=== PATIENT | female | born 1990 | race American Indian/Alaskan Native ===

== ENCOUNTER 2022-03-05 12:37 | Emergency (ER) | payer SELFPAY ==
[2022-03-05 12:55] VITALS: BP 100/53
[2022-03-05 14:00] LABS: HCG Qualitative,Urine Positive (Negative)
[2022-03-05] MEDS ORDERED: ONDANSETRON 4 MG ODT TAB PO ONE ×2 (14:47→17:33)
[2022-03-05 16:23] LABS: Bilirubin,Urine NEG (Negative); Blood,Urine NEG (Negative); Color,Urine Amber (Yellow); Mucus,Urine 3+ /HPF; Urobilinogen,Urine < 2.0 mg/dL (<2.0)
--- NOTE | 2022-03-05 17:15 | Ultrasound Report ---
OB Ultrasound HISTORY: abdominal pain, preg. TECHNIQUE: Grayscale and color imaging performed. COMPARISON: None FINDINGS: Uterus measures 11 x 8.5 x 9 cm with an intrauterine gestation present. pole is 5.3 c m which corresponds with an EGA of 12 weeks 0 days. Estimated delivery date is 09/20/2022. The heart rate is 159 bpm. Both ovaries appear unremarkable. No significant pelvic free fluid. IMPRESSION: Single viable intrauterine gestation as above. Signer Name: Jeff Castañeda MD Signed: 03/05/2022 5:11 PM Workstation Name: [id number]
--- NOTE | 2022-03-05 17:24 | Emergency Department Report ---
ED HPI - General Chief complaint: Nausea/Vomiting/Diarrhea Stated complaint: SPITTING/VOMITING/NAUSEA Time Seen by Provider: 03/05/22 14:37 Source: patient Mode of arrival: Ambulatory Limitations: No Limitations - History of Present Illness Initial comments: 31-year-old black female with no past medical history presents to the emergency department for evaluation of 1 month history of nausea, vomiting, spitting, and intermittent abdominal cramping. She states that she has had nausea consistently for the last month and she vomits only sometimes. She states that over the last few weeks she has been spitting all the time. She states that she has intermittent abdominal cramping. She denies fever, dysuria, vaginal discharge, and vaginal bleeding. She states that her last menstrual period was sometime in December of 2021. MD Complaint: abdominal pain ( ) -: Gradual Location: abdomen Radiation: none Severity: mild Severity scale (0 -10): 2 Quality: cramping Consistency: intermittent Associated symptoms: nausea/vomiting, abdominal pain. denies: vaginal bleeding, vaginal discharge, dysuria, headache, vision changes, malaise, dysparuenia, rash, seizure, shortness of breath, syncope, weakness Vaginal bleeding: none - Related Data Previous Rx's Medication Instructions Recorded Last Taken Type Ondansetron [Zofran Odt] 4 mg PO Q8HR PRN #12 tab.rapdis 03/05/22 Unknown Rx Allergies Allergy/AdvReac Type Severity Reaction Status Date / Time No Known Allergies Allergy Verified 03/05/22 12:55 ED Review of Systems ROS: Stated complaint: SPITTING/VOMITING/NAUSEA Other details as noted in HPI Comment: All other systems reviewed and negative Constitutional: denies: chills, fever Eyes: denies: vision change ENT: denies: congestion Respiratory: denies: cough, shortness of breath, SOB with exertion, SOB at rest, stridor, wheezing Cardiovascular: denies: dyspnea on exertion, orthopnea, edema, syncope, paroxysmal nocturnal dyspnea Gastrointestinal: abdominal pain, nausea, vomiting. denies: diarrhea, melena, hematochezia Genitourinary: denies: urgency, dysuria, frequency, hematuria, discharge Musculoskeletal: denies: back pain Skin: denies: rash, lesions Neurological: denies: headache, weakness Psychiatric: denies: anxiety, depression ED Past Medical Hx - Past Medical History Previous Medical History?: No - Surgical History Past Surgical History?: No - Social History Smoking Status: Never Smoker - Medications Home Medications: Home Medications Medication Instructions Recorded Confirmed Last Taken Type Ondansetron [Zofran Odt] 4 mg PO Q8HR PRN #12 tab.bandardis 03/05/22 Unknown Rx ED Physical Exam - General Limitations: No Limitations General appearance: alert, in no apparent distress - Head Head exam: Present: atraumatic, normocephalic - Eye Eye exam: Present: normal appearance. Absent: conjunctival injection - Neck Neck exam: Present: normal inspection, full ROM. Absent: tenderness, lymphadenopathy - Respiratory Respiratory exam: Present: normal lung sounds bilaterally. Absent: respiratory distress, wheezes, rales, rhonchi, stridor, chest wall tenderness - Cardiovascular Cardiovascular Exam: Present: regular rate, normal heart sounds - GI/Abdominal GI/Abdominal exam: Present: soft, normal bowel sounds. Absent: distended, tenderness, guarding, rebound, rigid - Extremities Exam Extremities exam: Present: normal inspection, normal capillary refill. Absent: tenderness, pedal edema, joint swelling, calf tenderness - Back Exam Back exam: Present: normal inspection. Absent: CVA tenderness (R), CVA tenderness (L), vertebral tenderness - Neurological Exam Neurological exam: Present: alert, oriented X3, normal gait - Psychiatric Psychiatric exam: Present: normal affect, normal mood - Skin Skin exam: Present: warm, dry, intact, normal color ED Course Vital Signs 03/05/22 12:47 Temperature 97.8 F Pulse Rate 91 H Respiratory 14 Rate Blood Pressure 100/53 O2 Sat by Pulse 98 Oximetry ED Medical Decision Making - Radiology Data Radiology results: report reviewed, image reviewed ultrasound: FINDINGS: Uterus measures 11 x 8.5 x 9 cm with an intrauterine gestation present. pole is 5.3 cm which corresponds with an EGA of 12 weeks 0 days. Estimated delivery date is 09/20/2022. The heart rate is 159 bpm. Both ovaries appear unremarkable. No significant pelvic free fluid. IMPRESSION: Single viable intrauterine gestation as above. - Medical Decision Making 31-year-old black female with no past medical history presents to the emergency department for evaluation of 1 month history of nausea, vomiting, spitting, and intermittent abdominal cramping. She states that she has had nausea consistently for the last month and she vomits only sometimes. She states that over the last few weeks she has been spitting all the time. She states that she has intermittent abdominal cramping. She denies fever, dysuria, vaginal discharge, and vaginal bleeding. She states that her last menstrual period was sometime in December of 2021. Urine positive for negative for urinary tract infection. ultrasound positive for IUP at 12 weeks with no other acute abnormalities noted. Patient be discharged home with prescription for Zofran to use as needed for nausea or vomiting and advised to take vitamins, use Tylenol only as needed for pain, drink plenty of noncaffeinated fluids, and follow-up with [facility] as soon as possible for further care and management. She is advised to return to the emergency department for any concerning symptoms. She verbalizes understanding of and agreement with plan of care. Critical care attestation.: If time is entered above; I have spent that time in minutes in the direct care of this critically ill patient, excluding procedure time. ED Disposition Clinical Impression: Abdominal pain during in first trimester, Nausea and vomiting during prior to 22 weeks gestation Disposition: 01 HOME / SELF CARE / HOMELESS Is pt being admited?: No Does the pt Need Aspirin: No Condition: Stable Instructions: Abdominal Pain During , [id number], Morning Sickness, [id number] Additional Instructions: Take medications as prescribed. Drink plenty of noncaffeinated fluids. Follow- up with [facility] for further management. Return to the emergency department as needed. Prescriptions: Ondansetron [Zofran Odt] 4 mg PO Q8HR PRN #12 tab.rapdis PRN Reason: Nausea And Vomiting Referrals: [facility] [Provider Group] - 3-[address] [facility] [Provider Group] - 3-5 Days [facility] [Provider Group] - 3-5 Days Time of Disposition: 17:24
== END 2022-03-05 20:12 | disposition home or self-care (01) ==
LOC: ED 12:37
DX: O21.2 Late vomiting of pregnancy (principal); R10.9 Unspecified abdominal pain; Z3A.22 22 weeks gestation of pregnancy; Z79.899 Other long term (current) drug therapy
CPT/HCPCS: 76801; 76817; 81001; 81025; 99284; J3490; Q0162